=== PATIENT | male | born 1950 | race African-American/Black ===

== ENCOUNTER 2020-08-19 17:51 | Inpatient (IN) | payer MEDICARE, OTHER ==
[~2020-08-19] VITALS: Ht 182.9 cm; Wt 84.4 kg
[2020-08-19] MEDS ORDERED: Adenosine 6mg/2ml Inj ONE ×2 (17:53→18:07)
--- NOTE | 2020-08-19 17:58 | NUR ---
came to er complaints of palpitation from home . patient had adenosin 6 mg iv in the field on arrival patient is in svt ekg done
--- NOTE | 2020-08-19 18:00 | NUR ---
adenosin 6mg iv given 181 adenosin 5 mg iv given converted to sinus rhythem 182 svt again given 12 mg adenosin iv push
--- NOTE | 2020-08-19 18:05 | Emergency Room Report ---
History of Present Illness General Source: Patient Present Illness [facility] Patient is a 70-year-old male presents for increased palpitations onset approximate 4 hours prior to arrival. Patient had been given adenosine by EMS after vagal maneuver had failed. Patient a prior history of cardiac stents and had previous heart attack approximately 12 years ago . patient denies any chest pain. Patient had been given Cardizem aspirin by EMS as well. Patient denies any stimulant use. He reports having some alcohol yesterday. He denies feeling shaky. Denies any drug use Allergies: Coded Allergies: No Known Allergies (Unverified , 08/19/20) Patient History Past Medical History: see triage record Reviewed Nursing Documentation: PMH: Agreed; PSxH: Agreed Review of Systems All Other Systems: negative except mentioned in HPI Physical Exam Sp02 EP Interpretation: reviewed, normal General Appearance: normal inspection, well appearing, no apparent distress, alert Head: atraumatic ENT: normal ENT inspection, hearing grossly normal, normal voice Neck: normal inspection, full range of motion, supple, no bony tend Respiratory: normal inspection, lungs clear, normal breath sounds, no respiratory distress, no retraction, no wheezing Cardiovascular #1: regular rate, rhythm, no edema Gastrointestinal: normal inspection, normal bowel sounds, non tender, soft, no guarding, no hernia Genitourinary: no CVA tenderness Musculoskeletal: normal inspection, back normal, normal range of motion Neurologic: alert, motor strength/tone normal, transmitter engineer III-XII nml as tested, oriented x3, responsive, speech normal, normal inspection Psychiatric: normal inspection, judgement/insight normal, mood/affect normal Skin: normal color Procedures Critical Care Time Critical Care Time Patient had a critical medical condition which untreated could potentially result in life or limb threatening injury. Total critical care time excluding procedures approximately 45 minutes. Medical Decision Making Diagnostic Impression: Primary Impression: Supraventricular tachycardia ER Course Patient presented for supraventricular tachycardia. Differential diagnosis include was not limited to arrhythmia, pulmonary embolism, electrolyte abnormality, stimulant use among others.Patient was noted to have's multiple episodes of recurrent supraventricular tachycardia. He was given adenosine x2 with recurrence both times. He was subsequent given magnesium IV due to recent alcohol intake and rhythm disturbance. Patient was also given IV Cardizem 20 mg IV total. Patient still had some recurrences of supraventricular tachycardia. Patient's initial troponin was negative. Patient had been given aspirin by paramedics. Patient was given additional dose of magnesium to total 2 g. Patient had multiple episodes of SVT which converted each time 6 mg or 12 mg of adenosine was used. Patient had continued recurrences and was therefore given Cardizem. Patient also had some episodes which resolved spontaneously . Dr. Gu was contacted for inpatient management due to need for inpatient monitoring and treatment. Patient will be admitted to stepdown unit Labs Test 08/19/20 18:00 White Blood Count 5.8 K/UL (4.8-10.8) Red Blood Count 4.39 M/UL (4.70-6.10) Hemoglobin 14.4 G/DL (14.2-18.0) Hematocrit 44.3 % (42.0-52.0) Mean Corpuscular Volume 101 FL (80-99) Mean Corpuscular Hemoglobin 32.8 PG (27.0-31.0) Mean Corpuscular Hemoglobin Concent 32.5 G/DL (32.0-36.0) Red Cell Distribution Width 14.4 % (11.6-14.8) Platelet Count 216 K/UL (150-450) Mean Platelet Volume 7.5 FL (6.5-10.1) Neutrophils (%) (Auto) 58.4 % (45.0-75.0) Lymphocytes (%) (Auto) 34.8 % (20.0-45.0) Monocytes (%) (Auto) 5.6 % (1.0-10.0) Eosinophils (%) (Auto) 0.4 % (0.0-3.0) Basophils (%) (Auto) 0.8 % (0.0-2.0) Prothrombin Time 10.0 SEC (9.30-11.50) Prothromb Time International Ratio 0.9 (0.9-1.1) Activated Partial Thromboplast Time 25 SEC (23-33) D-Dimer 0.25 mg/L FEU (0.00-0.49) Sodium Level 142 MMOL/L (136-145) Potassium Level 3.9 MMOL/L (3.5-5.1) Chloride Level 106 MMOL/L (98-107) Carbon Dioxide Level 31 MMOL/L (21-32) Anion Gap 5 mmol/L (5-15) Blood Urea Nitrogen 22 mg/dL (7-18) Creatinine 1.2 MG/DL (0.55-1.30) Estimat Glomerular Filtration Rate > 60 mL/min (>60) Glucose Level 99 MG/DL (74-106) Calcium Level 9.3 MG/DL (8.5-10.1) Total Bilirubin 0.2 MG/DL (0.2-1.0) Aspartate Amino Transf (AST/SGOT) 25 U/L (15-37) Alanine Aminotransferase (ALT/SGPT) 29 U/L (12-78) Alkaline Phosphatase 44 U/L (46-116) Troponin I 0.023 ng/mL (0.000-0.056) Total Protein 7.1 G/DL (6.4-8.2) Albumin 3.6 G/DL (3.4-5.0) Globulin 3.5 g/dL Albumin/Globulin Ratio 1.0 (1.0-2.7) EKG Diagnostic Results Rate: normal Rhythm: NSR ST Segments: no acute changes Nathan Zaman MD Aug 19, 2020 18:05
[2020-08-19] MEDS ORDERED: Carvedilol 12.5mg tab ORAL ONE (18:15)
[2020-08-19] MEDS ORDERED: Adenosine 6mg/2ml Inj IVP ONE ×3 (18:15→20:45)
[2020-08-19 18:17] VITALS: BP 120/80
[2020-08-19 18:30] LABS: BASOPHILS % (AUTO) 0.8 % (0.0-2.0); EOSINOPHILS % (AUTO) 0.4 % (0.0-3.0); HEMATOCRIT 44.3 % (42.0-52.0); HEMOGLOBIN 14.4 G/DL (14.2-18.0); LYMPHOCYTES % (AUTO) 34.8 % (20.0-45.0); MEAN CORPUSCULAR VOLUME 101 FL (80-99); MONOCYTES % (AUTO) 5.6 % (1.0-10.0); NEUTROPHILS % (AUTO) 58.4 % (45.0-75.0); PLATELET COUNT 216 K/UL (150-450); RED BLOOD COUNT 4.39 M/UL (4.70-6.10); RED CELL DISTRIBUTION WIDTH 14.4 % (11.6-14.8); WHITE BLOOD COUNT 5.8 K/UL (4.8-10.8)
[2020-08-19] MEDS ORDERED: dilTIAZem HCl 25mg/5ml Inj IVP ONE (18:30)
[2020-08-19] MEDS ORDERED: Adenosine 90 mg/30mL vial IVP ONE (18:30)
[2020-08-19 18:32] LABS: ANION GAP 5 mmol/L (5-15); BLOOD UREA NITROGEN 22 mg/dL (7-18); CALCIUM 9.3 MG/DL (8.5-10.1); CARBON DIOXIDE 31 MMOL/L (21-32); CHLORIDE 106 MMOL/L (98-107); CREATININE 1.2 MG/DL (0.55-1.30); POTASSIUM 3.9 MMOL/L (3.5-5.1); SODIUM 142 MMOL/L (136-145)
--- NOTE | 2020-08-19 18:35 | NUR ---
ED Nurse Note:IV cardizem was given , BP went down to 69
[2020-08-19 18:36] LABS: INR 0.9 (0.9-1.1)
[2020-08-19 18:38] LABS: ALANINE AMINOTRANSFERASE 29 U/L (12-78); ALBUMIN 3.6 G/DL (3.4-5.0); ALKALINE PHOSPHATASE 44 U/L (46-116); ASPARTATE AMINO TRANSFERASE 25 U/L (15-37); BILIRUBIN,TOTAL 0.2 MG/DL (0.2-1.0)
[2020-08-19] MEDS ORDERED: Aspirin Baby 81mg ORAL ONE (18:45)
[2020-08-19 18:48] VITALS: BP 116/2
--- NOTE | 2020-08-19 18:59 | Diagnostic Imaging Report ---
EXAM: XR Chest, 1 View CLINICAL HISTORY: SOB TECHNIQUE: Frontal view of the chest. COMPARISON: None. FINDINGS: Lungs: Unremarkable. No consolidation. Pleural space: Unremarkable. No pneumothorax. Heart: Unremarkable. No cardiomegaly. Mediastinum: Unremarkable. Bones/joints: Unremarkable. Vasculature: Mild atherosclerotic tortuosity of aorta. IMPRESSION: No acute cardiopulmonary disease.
--- NOTE | 2020-08-19 19:32 | NUR ---
ED Nurse Note: Recieved pt awake, A7Ox4, and verbal. Pt goes in and out of SVT,EDMD ordered another magnesium. pt HR 69 right now. pt is waiting for bed . We will keep monitoring the pt
[2020-08-19 19:45] VITALS: BP 142/79
--- NOTE | 2020-08-19 20:45 | NUR ---
ED Nurse Note: Pt got another SVT and adenosine 6mg given;HR went down back to normal.
[2020-08-19] MEDS ORDERED: Amiodarone 150mg/3ml Amp IVP ONE (21:00)
--- NOTE | 2020-08-19 21:07 | NUR ---
ED Nurse Note: Pt keep getting svt; EDMD ordered amiodarone drip and order noted and carried on.
[2020-08-19 21:16] VITALS: BP 139/72
--- NOTE | 2020-08-19 22:00 | NUR ---
TRANSFER TO FLOOR: Patient transferred to 246F as ordered, per Casper. Report given to BARBIE Kevin. All Belongings sent with the pt. 2 RN's transferred the pt to floor in stable condition.
--- NOTE | 2020-08-19 22:15 | NUR ---
NURSE NOTES: received from ed via gurney,in no ditress, cardiac monitor technician shows nsr with hr 60's/min bp 147/96, no complaints of chest pain, on o22lnc with o2 sat 100%, iv site good to right ac and left hand, no maintenace iv fluid, has $77 but refused to put it in the safe
[2020-08-19 22:30] VITALS: BP 147/96
--- NOTE | 2020-08-19 22:50 | NUR ---
NURSE NOTES: dr barrera called for orders
[2020-08-19 23:03] VITALS: BP 147/94
--- NOTE | 2020-08-19 23:15 | NUR ---
NURSE NOTES: dr barrera called in and admission orders noted
[2020-08-20] VITALS (18 sets, daily range): BP systolic 117–159; BP diastolic 75–102
--- NOTE | 2020-08-20 | NUR ---
NURSE NOTES: remains on nsr, no sob, no chest pain
[2020-08-20] MEDS ORDERED: ASPIRIN EC81 MG ORAL (00:24)
[2020-08-20] MEDS ORDERED: COREG12.5 MG ORAL (00:24)
[2020-08-20] MEDS ORDERED: SIMVASTATIN40 MG ORAL (00:24)
--- NOTE | 2020-08-20 02:33 | Cardiology Progress Note ---
Assessment/Plan Assessment/Plan The patient is seen and examined in the ED at 19:30 on Aug 19, full consult dictated. Objective Last 24 Hour Vital Signs Date Time Temp Pulse Resp B/P (MAP) Pulse Ox O2 Delivery O2 Flow Rate FiO2 08/20/20 01:00 58 18 125/80 (95) 98 08/20/20 00:33 Nasal Cannula 2.0 08/20/20 00:25 Nasal Cannula 2.0 08/20/20 00:00 98.0 65 18 132/75 (94) 98 08/19/20 23:03 61 20 147/94 (111) 100 08/19/20 22:30 98.4 60 20 147/96 (113) 100 08/19/20 22:00 97.8 63 19 141/69 99 Nasal Cannula 2.0 08/19/20 21:16 97.5 72 25 139/72 98 Nasal Cannula 2.0 08/19/20 20:41 178 08/19/20 19:45 97.9 69 21 142/79 98 Nasal Cannula 2.0 08/19/20 18:48 98.1 69 17 116/2 98 Room Air 08/19/20 18:30 190 08/19/20 18:29 190 120/80 08/19/20 18:17 98.1 190 18 120/80 98 Room Air 08/19/20 18:14 180 08/19/20 18:14 180 08/19/20 17:58 98.1 180 18 120/80 (93) 98 Room Air Intake and Output 08/19/20 08/20/20 19:00 07:00 Intake Total 240 ml Output Total 200 ml Balance 40 ml Intake Oral 240 ml Output Urine Total 200 ml # Voids 1 Laboratory Tests Test 08/19/20 18:00 White Blood Count 5.8 K/UL (4.8-10.8) Red Blood Count 4.39 M/UL (4.70-6.10) L Hemoglobin 14.4 G/DL (14.2-18.0) Hematocrit 44.3 % (42.0-52.0) Mean Corpuscular Volume 101 FL (80-99) H Mean Corpuscular Hemoglobin 32.8 PG (27.0-31.0) H Mean Corpuscular Hemoglobin Concent 32.5 G/DL (32.0-36.0) Red Cell Distribution Width 14.4 % (11.6-14.8) Platelet Count 216 K/UL (150-450) Mean Platelet Volume 7.5 FL (6.5-10.1) Neutrophils (%) (Auto) 58.4 % (45.0-75.0) Lymphocytes (%) (Auto) 34.8 % (20.0-45.0) Monocytes (%) (Auto) 5.6 % (1.0-10.0) Eosinophils (%) (Auto) 0.4 % (0.0-3.0) Basophils (%) (Auto) 0.8 % (0.0-2.0) Prothrombin Time 10.0 SEC (9.30-11.50) Prothromb Time International Ratio 0.9 (0.9-1.1) Activated Partial Thromboplast Time 25 SEC (23-33) D-Dimer 0.25 mg/L FEU (0.00-0.49) Sodium Level 142 MMOL/L (136-145) Potassium Level 3.9 MMOL/L (3.5-5.1) Chloride Level 106 MMOL/L (98-107) Carbon Dioxide Level 31 MMOL/L (21-32) Anion Gap 5 mmol/L (5-15) Blood Urea Nitrogen 22 mg/dL (7-18) H Creatinine 1.2 MG/DL (0.55-1.30) Estimat Glomerular Filtration Rate > 60 mL/min (>60) Glucose Level 99 MG/DL (74-106) Calcium Level 9.3 MG/DL (8.5-10.1) Total Bilirubin 0.2 MG/DL (0.2-1.0) Aspartate Amino Transf (AST/SGOT) 25 U/L (15-37) Alanine Aminotransferase (ALT/SGPT) 29 U/L (12-78) Alkaline Phosphatase 44 U/L (46-116) L Troponin I 0.023 ng/mL (0.000-0.056) Total Protein 7.1 G/DL (6.4-8.2) Albumin 3.6 G/DL (3.4-5.0) Globulin 3.5 g/dL Albumin/Globulin Ratio 1.0 (1.0-2.7) Microbiology Date/Time Source Procedure Growth Status 08/19/20 19:00 Nasopharynx SARS-CoV-2 RdRp Gene Assay - Final Complete Dayton Coleman MD Aug 20, 2020 02:33
--- NOTE | 2020-08-20 04:00 | NUR ---
NURSE NOTES: no complaints, bus driver/monitor shows sb/sr
--- NOTE | 2020-08-20 04:45 | Consultation ---
DATE OF CONSULTATION: 08/19/2020 CARDIOLOGY CONSULTATION CONSULTING PHYSICIAN: Dayton Coleman M.D. REFERRING PHYSICIAN: Shasha Gu M.D. REASON FOR CONSULTATION: Management of supraventricular tachycardia. HISTORY OF PRESENT ILLNESS: The patient is a very unfortunate 70-year-old gentleman who presents to the hospital with complaints of palpitations and heart racing that occurred just above 4 hours prior to his arrival to the emergency department. The patient's initial 12-lead electrocardiogram done by EMS was supraventricular tachycardia, rate of 180. The patient was given adenosine after vagal maneuver was failed. At the time of arrival to the hospital, the patient's 12-lead electrocardiogram showed sinus tachycardia. Cardiovascular history is also significant for history of coronary artery disease status post PCI that occurred about 12 years ago. At the time of my arrival to the hospital, the patient did not have any chest pain or shortness of breath. He states that he drank alcohol the day before. PAST MEDICAL HISTORY: 1. Coronary artery disease status post PCI. 2. History of supraventricular tachycardia, seen by his reed press feeder, who had pacing on medication. PAST SURGICAL HISTORY: Angioplasty and stent placement in the coronary arteries. ALLERGIES: No known drug allergies. REVIEW OF SYSTEMS: HEENT: Denies any headache, diplopia, or blurred vision. CONSTITUTIONAL: Denies any fever, chills, nausea, or weight loss. CARDIOVASCULAR: Denies any chest pain, shortness breath, PND, orthopnea, leg swelling. Heart racing was temporary and currently does not have any palpitations. PULMONARY: Denies any cough, hemoptysis, or wheezing. GASTROINTESTINAL: Denies any nausea, vomiting, diarrhea, constipation, abdominal pain, or GI bleed. GENITOURINARY: Denies any hematuria, dysuria, or incontinence. NEUROLOGY: Denies any motor dysfunction, sensory deficit, or altered speech. MEDICATIONS: List of medications at home includes aspirin 81 mg p.o. daily, carvedilol 12.5 mg q.12 hours, and simvastatin 40 mg p.o. at bedtime. FAMILY HISTORY: No premature coronary artery disease in the first-degree relatives. HABITS: Positive for drinking alcohol. Denies any tobacco use or illicit drug use. PHYSICAL EXAMINATION: VITAL SIGNS: At the time of arrival to the hospital, the patient's blood pressure was 120/80 mmHg and heart rate was 180. After adenosine, the patient's heart rate dropped to 69, temperature 98.1 degrees Fahrenheit, respirations of 18, O2 saturation of 98% on room air. GENERAL: The patient is a very unfortunate 70-year-old gentleman in no apparent respiratory distress. HEENT: Atraumatic and normocephalic. Anicteric. Pupils are equal, round, and reactive to light and accommodation. Extraocular muscles intact. NECK: JVP less than 5 cm. No carotid bruit. Carotid upstrokes 2+ bilaterally. CARDIOVASCULAR: Normal S1 and S2. Regular rate and rhythm. No murmurs, gallops, or rubs. PMI is at fourth intercostal space at the left midclavicular line. LUNGS: Clear to auscultation bilaterally. ABDOMEN: Soft, nontender, and nondistended. No hepatosplenomegaly. Positive bowel sounds. EXTREMITIES: No evidence of edema, clubbing, or cyanosis. ER COURSE: In the emergency department, the patient had recurrence of supraventricular tachycardia, for which he was given adenosine x2. Then, he was given magnesium intravenous and Cardizem 20 mg intravenous push x1 dose, total adenosine given to the patient was 6 times. LABORATORY FINDINGS: WBC 5.8, hemoglobin 14.4, hematocrit of 44.3, and platelet count is 216. Sodium is 142, potassium is 3.9, chloride 106, bicarbonate 31, BUN 22, creatinine 1.2, glucose is 99, and calcium is 9.3. D-dimer is 0.25. Troponin I 0.023. Chest x-ray showed no acute cardiopulmonary disease. ASSESSMENT AND PLAN: The patient is a very unfortunate 70-year-old gentleman seen in Cardiology consultation. 1. 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 We would like to continue Coreg. The patient requires to have a decision for electrophysiology study and possible ablation of this rhythm. Currently at this time, the patient will be given beta-blockers. This is an outpatient management and [facility] does not have the amenities for EP study. 2. History of coronary artery disease, status post PCI, will continue aspirin and statins. The patient's 12-lead electrocardiogram does not show any ischemic changes. We will continue to rule out myocardial infarction with troponin I levels. Of note, initial troponin I level was 0.023. 3. History of hypertension. I would like to thank Dr. Gu for the courtesy of this consultation. Dayton Coleman M.D. DR: KIN JOB#: [id number] CC:
[2020-08-20 06:36] LABS: BASOPHILS % (AUTO) 0.8 % (0.0-2.0); EOSINOPHILS % (AUTO) 0.8 % (0.0-3.0); HEMATOCRIT 41.7 % (42.0-52.0); HEMOGLOBIN 13.5 G/DL (14.2-18.0); LYMPHOCYTES % (AUTO) 34.4 % (20.0-45.0); MEAN CORPUSCULAR VOLUME 101 FL (80-99); MONOCYTES % (AUTO) 6.8 % (1.0-10.0); NEUTROPHILS % (AUTO) 57.2 % (45.0-75.0); PLATELET COUNT 200 K/UL (150-450); RED BLOOD COUNT 4.12 M/UL (4.70-6.10); RED CELL DISTRIBUTION WIDTH 13.7 % (11.6-14.8); WHITE BLOOD COUNT 5.3 K/UL (4.8-10.8)
--- NOTE | 2020-08-20 07:06 | NUR ---
NURSE HAND-OFF REPORT: Latest Vital Signs: Temperature 97.4 , Pulse 56 , B/P 141 /102 , Respiratory Rate 20 , O2 SAT 100 , Nasal Cannula, O2 Flow Rate 2.0 . Vital Sign Comment: EKG Rhythm: Sinus Bradycardia Rhythm change?: N MD Notified?: - MD Response: Latest Ledesma Fall Score: 35 Fall Risk: Medium Risk Safety Measures: Call light Within Reach, Bed Alarm Zone 1, Side Rails Side Rails x3, Bed position Low and Locked. Fall Precautions: fall teaching, sign at the door Report given to luis felipe keller.
[2020-08-20 07:46] LABS: ALANINE AMINOTRANSFERASE 28 U/L (12-78); ALBUMIN 3.3 G/DL (3.4-5.0); ALKALINE PHOSPHATASE 37 U/L (46-116); ANION GAP 7 mmol/L (5-15); ASPARTATE AMINO TRANSFERASE 24 U/L (15-37); BILIRUBIN,TOTAL 0.2 MG/DL (0.2-1.0); BLOOD UREA NITROGEN 19 mg/dL (7-18); CALCIUM 9.1 MG/DL (8.5-10.1); CARBON DIOXIDE 27 MMOL/L (21-32); CHLORIDE 109 MMOL/L (98-107); CHOLESTEROL 199 MG/DL (< 200); CREATININE 0.9 MG/DL (0.55-1.30); HDL CHOLESTEROL 67 MG/DL (40-60); SODIUM 143 MMOL/L (136-145); TRIGLYCERIDES 180 MG/DL (30-150)
--- NOTE | 2020-08-20 08:00 | NUR ---
NURSE NOTES: Received patient awake and alert- denies palpitation ,denies pain. monitoring tech shows Sinus Bradycardia rate 54-56/min. SL @ Right AC and LH patent - no s/s infiltration noted. Patient on RA - sao2 98-100% denies SOB
[2020-08-20] MEDS: Aspirin Baby 81mg NG SCH (08:31)
[2020-08-20] MEDS: Carvedilol 12.5mg tab NG SCH ×2 (08:31→20:51)
[2020-08-20] MEDS: Enoxaparin 40mg Inj SUBQ SCH (08:34)
--- NOTE | 2020-08-20 09:00 | NUR ---
NURSE NOTES: Coreg12.5 mg not given due to low HR 54/min
--- NOTE | 2020-08-20 10:45 | Cardiology Report ---
APPROVED REPORT EKG Measurement Heart [id number] <Conclusion> Sinus tachycardia Right atrial enlargement Junctional ST depression, probably normal Borderline ECG
--- NOTE | 2020-08-20 11:41 | Consultation ---
Consult Note Consult Note HISTORY OF PRESENT ILLNESS: The patient is a 70-year-old gentleman who presents to the hospital with complaints of palpitations and heart racing that occurred just above 4 hours prior to his arrival to the emergency department. The patient's initial 12-lead electrocardiogram done by EMS was supraventricular tachycardia, rate of 180. The patient was given adenosine after vagal maneuver was failed. At the time of arrival to the hospital, the patient's 12-lead electrocardiogram showed sinus tachycardia. Cardiovascular history is also significant for history of coronary artery disease status post PCI that occurred about 12 years ago. At the time of my arrival to the hospital, the patient did not have any chest pain or shortness of breath. He states that he drank alcohol the day before. PAST MEDICAL HISTORY: 1. Coronary artery disease status post PCI. 2. History of supraventricular tachycardia, seen by his collet gluer, who had pacing on medication. PAST SURGICAL HISTORY: Angioplasty and stent placement in the coronary arteries. ALLERGIES: No known drug allergies. REVIEW OF SYSTEMS: HEENT: Denies any headache, diplopia, or blurred vision. CONSTITUTIONAL: Denies any fever, chills, nausea, or weight loss. CARDIOVASCULAR: Denies any chest pain, shortness breath, PND, orthopnea, leg swelling. Heart racing was temporary and currently does not have any palpitations. PULMONARY: Denies any cough, hemoptysis, or wheezing. GASTROINTESTINAL: Denies any nausea, vomiting, diarrhea, constipation, abdominal pain, or GI bleed. GENITOURINARY: Denies any hematuria, dysuria, or incontinence. NEUROLOGY: Denies any motor dysfunction, sensory deficit, or altered speech. MEDICATIONS: List of medications at home includes aspirin 81 mg p.o. daily, carvedilol 12.5 mg q.12 hours, and simvastatin 40 mg p.o. at bedtime. FAMILY HISTORY: No premature coronary artery disease in the first-degree relatives. HABITS: Positive for drinking alcohol. Denies any tobacco use or illicit drug use. PHYSICAL EXAMINATION: VITAL SIGNS: At the time of arrival to the hospital, the patient's blood pressure was 120/80 mmHg and heart rate was 180. After adenosine, the patient's heart rate dropped to 69, temperature 98.1 degrees Fahrenheit, respirations of 18, O2 saturation of 98% on room air. GENERAL: No respiratory distress. HEENT: Atraumatic and normocephalic. Anicteric. Pupils are equal, round, and reactive to light and accommodation. Extraocular muscles intact. NECK: JVP less than 5 cm. No carotid bruit. Carotid upstrokes 2+ bilaterally. CARDIOVASCULAR: Normal S1 and S2. Regular rate and rhythm. No murmurs, gallops, or rubs. PMI is at fourth intercostal space at the left midclavicular line. LUNGS: Clear to auscultation bilaterally. ABDOMEN: Soft, nontender, and nondistended. No hepatosplenomegaly. Positive bowel sounds. EXTREMITIES: No evidence of edema, clubbing, or cyanosis. ER COURSE: In the emergency department, the patient had recurrence of supraventricular tachycardia, for which he was given adenosine x2. Then, he was given magnesium intravenous and Cardizem 20 mg intravenous push x1 dose, total adenosine given to the patient was 6 times. LABORATORY FINDINGS: WBC 5.8, hemoglobin 14.4, hematocrit of 44.3, and platelet count is 216. Sodium is 142, potassium is 3.9, chloride 106, bicarbonate 31, BUN 22, creatinine 1.2, glucose is 99, and calcium is 9.3. D-dimer is 0.25. Troponin I 0.023. Chest x-ray showed no acute cardiopulmonary disease. ASSESSMENT AND PLAN: 1. 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 - Continue Coreg. - EP evaluation 2. History of coronary artery disease, status post PCI, 3. History of hypertension. Stable to transfer out of ICU Aston Mckeon M.D. Aston Mckeon MD Aug 20, 2020 11:41
--- NOTE | 2020-08-20 12:00 | NUR ---
NURSE NOTES: V/S stable - denies palpitation - surveillance monitor shows in and out of Sinus Bradycardia and ST - no ectopy noted. Patient made aware he is for transfer to SDU /Tele unit as soon as room is available
--- NOTE | 2020-08-20 12:15 | General Progress Note ---
Subjective Allergies: Coded Allergies: No Known Allergies (Unverified , 08/19/20) Objective Last 24 Hour Vital Signs Date Time Temp Pulse Resp B/P (MAP) Pulse Ox O2 Delivery O2 Flow Rate FiO2 08/20/20 12:00 Room Air 08/20/20 12:00 98.0 58 19 159/99 (119) 100 08/20/20 12:00 55 08/20/20 11:00 66 15 141/83 (102) 99 08/20/20 10:00 66 19 154/84 (107) 99 08/20/20 09:00 59 18 136/87 (103) 99 08/20/20 08:31 54 153/88 08/20/20 08:00 97.6 56 15 150/102 (118) 100 08/20/20 08:00 Room Air 08/20/20 08:00 54 08/20/20 07:00 56 20 141/102 (115) 100 08/20/20 05:00 55 20 149/93 (111) 100 08/20/20 04:00 Nasal Cannula 2.0 08/20/20 04:00 97.4 70 20 135/93 (107) 100 08/20/20 03:41 60 08/20/20 03:00 62 20 117/77 (90) 100 08/20/20 02:00 60 20 125/83 (97) 100 08/20/20 01:00 58 18 125/80 (95) 98 08/20/20 00:33 Nasal Cannula 2.0 08/20/20 00:25 Nasal Cannula 2.0 08/20/20 00:00 61 08/20/20 00:00 98.0 65 18 132/75 (94) 98 08/19/20 23:03 61 20 147/94 (111) 100 08/19/20 22:30 98.4 60 20 147/96 (113) 100 08/19/20 22:30 60 08/19/20 22:00 97.8 63 19 141/69 99 Nasal Cannula 2.0 08/19/20 21:16 97.5 72 25 139/72 98 Nasal Cannula 2.0 08/19/20 20:41 178 08/19/20 19:45 97.9 69 21 142/79 98 Nasal Cannula 2.0 08/19/20 18:48 98.1 69 17 116/2 98 Room Air 1/10/21 18:30 190 08/19/20 18:29 190 120/80 08/19/20 18:17 98.1 190 18 120/80 98 Room Air 08/19/20 18:14 180 08/19/20 18:14 180 08/19/20 17:58 98.1 180 18 120/80 (93) 98 Room Air Intake and Output 08/19/20 08/20/20 19:00 07:00 Intake Total 720 ml Output Total 450 ml Balance 270 ml Intake Oral 720 ml Output Urine Total 450 ml # Voids 1 Laboratory Tests 08/19/20 18:00: White Blood Count 5.8, Red Blood Count 4.39L, Hemoglobin 14.4, Hematocrit 44.3, Mean Corpuscular Volume 101H, Mean Corpuscular Hemoglobin 32.8H, Mean Corpuscular Hemoglobin Concent 32.5, Red Cell Distribution Width 14.4, Platelet Count 216, Mean Platelet Volume 7.5, Neutrophils (%) (Auto) 58.4, Lymphocytes (%) (Auto) 34.8, Monocytes (%) (Auto) 5.6, Eosinophils (%) (Auto) 0.4, Basophils (%) (Auto) 0.8, Prothrombin Time 10.0, Prothromb Time International Ratio 0.9, Activated Partial Thromboplast Time 25, D-Dimer 0.25, Sodium Level 142, Potassium Level 3.9, Chloride Level 106, Carbon Dioxide Level 31, Anion Gap 5, Blood Urea Nitrogen 22H, Creatinine 1.2, Estimat Glomerular Filtration Rate > 60, Glucose Level 99, Calcium Level 9.3, Total Bilirubin 0.2, Aspartate Amino Transf (AST/SGOT) 25, Alanine Aminotransferase (ALT/SGPT) 29, Alkaline Phosphatase 44L, Troponin I 0.023, Total Protein 7.1, Albumin 3.6, Globulin 3.5, Albumin/Globulin Ratio 1.0 08/20/20 06:05: White Blood Count 5.3, Red Blood Count 4.12L, Hemoglobin 13.5L, Hematocrit 41.7L , Mean Corpuscular Volume 101H, Mean Corpuscular Hemoglobin 32.8H, Mean Corpuscular Hemoglobin Concent 32.3, Red Cell Distribution Width 13.7, Platelet Count 200, Mean Platelet Volume 7.5, Neutrophils (%) (Auto) 57.2, Lymphocytes (%) (Auto) 34.4, Monocytes (%) (Auto) 6.8, Eosinophils (%) (Auto) 0.8, Basophils (%) (Auto) 0.8, Sodium Level 143, Potassium Level 4.0, Chloride Level 109H, Carbon Dioxide Level 27, Anion Gap 7, Blood Urea Nitrogen 19H, Creatinine 0.9, Estimat Glomerular Filtration Rate > 60, Glucose Level 111H, Calcium Level 9.1, Total Bilirubin 0.2, Aspartate Amino Transf (AST/SGOT) 24, Alanine Aminotransferase (ALT/SGPT) 28, Alkaline Phosphatase 37L, Troponin I 0.081H, Total Protein 6.6, Albumin 3.3L, Globulin 3.3, Albumin/Globulin Ratio 1.0, Hemoglobin A1c 6.7H, Triglycerides Level 180H, Cholesterol Level 199, LDL Cholesterol 105H, HDL Cholesterol 67H, Cholesterol/HDL Ratio 3.0L Height (Feet): 6 Weight (Pounds): 186 Assessment/Plan Assessment/Plan: Full dictatino in progress 1- acute symptomatic SVT 2- cad , h.o of 3- etoh abuse plan; pendig echo monitor in icu december fu outside the ICU Shasha Gu MD Aug 20, 2020 12:15
--- NOTE | 2020-08-20 13:03 | NUR ---
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
--- NOTE | 2020-08-20 13:35 | NUR ---
HEALTH EDUCATION COORDINATOR NOTE SW met w/ pt and completed the psychosocial assessment. Pt presents as A&O4x. Pt wears glasses. Pt currently resides w/ his girlfriend. Pt reports the address on facesheet is outdated and pt declined to provide the new address. Pt is single, and has no children. PT denies having fall within past 6 months. Pt is ambulatory w/o DME. However, pt reports he needs assistance w/ some ADLs and IADLs including cooking and bathing. Pt does not use a shower chair. SW encouraged pt to use one. PT receives [facility] service, unknown hours/mo, and his girlfriend is the provider. PT reports he receives sufficient support from his girlfriend. Pt declined to provide an emergency contact. Pt denies having AD/POA. Pt remains full code. Pt does not have any social worker aide concern/needs at this time. SW to F/U as needed.
--- NOTE | 2020-08-20 14:09 | NUR ---
NURSE NOTE Patient resting comfortably- had run of SVT rate 175 for 9 second with couplet PVC- BP 143/90
--- NOTE | 2020-08-20 14:30 | History and Physical Report ---
DATE OF ADMISSION: 08/19/2020 SOURCE OF INFORMATION: Patient and EMR. HISTORY OF PRESENT ILLNESS: The patient is a 70-year-old male with history of history of cardiac arrhythmia who presented with worsening of the chest pain and shortness of breath. Initial evaluation in the emergency room, the patient was found to have uncontrolled cardiac rate of 180, presented with episodes of ventricular tachycardia and SVT. The patient denies any nausea, vomiting, constipation. The patient reported that he takes and drinks alcohol and otherwise denies using any drugs. Denies any shortness of breath, chest pain, fever, or chills. FAMILY HISTORY: Reviewed and noncontributory. ALLERGIES: NKDA. SOCIAL HISTORY: Positive for alcohol abuse. Denies history of illicit drug abuse or tobacco use. MEDICATIONS: Current hospital medications including but not limited to aspirin, atorvastatin, Coreg, Lovenox. PAST MEDICAL AND SURGICAL HISTORY: Coronary artery disease with stent placement and cardiac arrhythmias. PHYSICAL EXAMINATION: VITAL SIGNS: Blood pressure of 120/80, temperature 98.2, pulse oximetry 98% on room air, pulse rate 180, respiratory rate 18. HEAD AND NECK: Atraumatic and normocephalic. CHEST: Clear to auscultation. HEART: S1 and S2. Regular rate and rhythm. ABDOMEN: Soft. No organomegaly. MUSCULOSKELETAL: No gross focal motor deficit. NEUROLOGIC: The patient is awake, alert, oriented x3. LABORATORY DATA: Dated 08/19/2020 shows WBC 5.8, hemoglobin of 14.4. Troponin of 0.02. Sodium 142, potassium 3.9, BUN 22, creatinine 1.2. LDL of 105. ASSESSMENT AND PLAN: 1. Acute symptomatic supraventricular tachyarrhythmias. 2. Coronary artery disease. 3. Hypertension. 4. Hyperlipidemia. 5. ETOH. 6. GI and DVT prophylaxis. PLAN OF CARE: Continue with current management. Cardiology and pulmonary notified. The patient received Cardizem drip and amiodarone drip. We will optimize the pulse rate. Pending results for the echocardiogram. I agree with the admission to intensive care unit. Shasha Gu M.D. DR: Humble JOB#: [id number] CC:
--- NOTE | 2020-08-20 16:00 | NUR ---
NURSE NOTES: Received pt from BARBIE Campos, pt is awake and alert, pt is in RA no SOB or acute respiratory distress noted. pt has intact iv access LH 20G and RAC 22G SL. Pt is on continues heart monitoring, no complain of pain at this moment. all needs attended, bed is locked and is in the lowest position, call light within easy reach. will continue to monitor.
--- NOTE | 2020-08-20 16:04 | NUR ---
NURSE NOTES: Patient transferred to SDU Room #234 via bed by Keiko RN - patient awake and alert
--- NOTE | 2020-08-20 16:30 | NUR ---
NURSE NOTES: Report given to Mic VALENTIN . Endorsed
--- NOTE | 2020-08-20 19:18 | NUR ---
NURSE HAND-OFF REPORT: Important Events on Shift: Patient Status: Diet: Pending Orders: Pending Results/Labs: Pending MD notification: Latest Vital Signs: Temperature 97.3 , Pulse 68 , B/P 142 /88 , Respiratory Rate 19 , O2 SAT 97 , Nasal Cannula, O2 Flow Rate 2.0 . Vital Sign Comment: EKG Rhythm: Sinus Rhythm Rhythm change?: N MD Notified?: - MD Response: Latest Ledesma Fall Score: 35 Fall Risk: Medium Risk Safety Measures: Call light Within Reach, Bed Alarm Zone 1, Side Rails Side Rails x3, Bed position Low and Locked. Fall Precautions: Yellow Socks Report given to . Pt is awake and stable, no stress noted, endorsed plan of care, endorsed to monitor HR, HR 67 now.
--- NOTE | 2020-08-20 19:30 | NUR ---
NURSE NOTES: Received report form BARBIE Haile. Patient is awake on bed, alert and oriented x 4. secured entrance monitor is in place, shows sinus rhythm with no chest pain reported. On room air, sating 95% with no desaturation at this time. On low sodium diet, instructed and amenable. IV site is on right AC g-22 saline locked and left hand g-20 saline locked that is patent and intact. Safety measures are in place, bed in lowest and locked position, side rails up x 2, call light button and bedside table within reach, instructed to call for any assistance needed. Will continue plan of care.
--- NOTE | 2020-08-20 20:57 | NUR ---
HAND-OFF: Report given to BARBIE Salcedo. Patient is awake on bed in stable condition, no complaints made at this time. Blood pressure is slightly elevated and denies any headache nor dizziness. Coreg was given. Plan of care endorsed.
[2020-08-20] MEDS ORDERED: Atorvastatin 20mg tab ORAL SCH (21:00)
--- NOTE | 2020-08-20 21:00 | NUR ---
NURSE NOTES: RECEIVED REPORT FROM BARBIE HAYS.PATIENT AWAKE ALERT ORIENTED X 4,NO COMPLAIN OF PAIN.SINUS MARTA 58/MIN ON THE MONITOR BP 156/100 ,COREG WAS GIVEN AT 5,BP RECHECKED 154/80 HR 59/MIN.WILL CONTINUE TO MONITOR .
[2020-08-21] VITALS: BP 166/97
[2020-08-21 04:00] VITALS: BP 181/107
--- NOTE | 2020-08-21 05:19 | NUR ---
NURSE NOTES: bp 181/107 hr 55-63 sinus,no chest pain.paged and notified Dr Coleman .Awaiting to call back.
--- NOTE | 2020-08-21 07:30 | NUR ---
NURSE NOTES: Received report from BARBIE Salcedo. Patient in bed resting, no active s/s cardiac, respiratory distress noticed at this time. Patient AOX4, SR with HR 63. Endorsed elevated SBP, now BP145/101, patient denies pain at this time. Patient on room air O2 sat 95%. IV on right AC 22G, left hand 20G, asymptomatic, patent, intact. Patient able to ambulate with steady gait, educated to call staffs before moving out of bed. Bed in lowest position, side rails upx3, call light within reach, bed alarm on, Will continue to monitor.
[2020-08-21 08:00] VITALS: BP 145/101
[2020-08-21] MEDS: Aspirin Baby 81mg NG SCH (08:34)
[2020-08-21] MEDS: Enoxaparin 40mg Inj SUBQ SCH (08:34)
[2020-08-21] MEDS: Carvedilol 12.5mg tab NG SCH (09:00)
--- NOTE | 2020-08-21 10:38 | General Progress Note ---
Subjective Allergies: Coded Allergies: No Known Allergies (Unverified , 08/19/20) Objective Last 24 Hour Vital Signs Date Time Temp Pulse Resp B/P (MAP) Pulse Ox O2 Delivery O2 Flow Rate FiO2 08/21/20 09:00 59 145/101 08/21/20 08:00 Room Air 08/21/20 08:00 96.8 60 18 145/101 (116) 97 08/21/20 08:00 54 08/21/20 06:15 181/107 08/21/20 04:00 Room Air 08/21/20 04:00 97.5 63 18 181/107 (131) 98 08/21/20 03:45 66 08/21/20 00:00 Room Air 08/21/20 00:00 56 08/21/20 00:00 97.7 58 20 166/97 (120) 97 08/20/20 21:00 59 154/80 (104) 08/20/20 20:51 58 156/100 08/20/20 20:00 96.5 58 22 156/100 (118) 97 08/20/20 20:00 Room Air 08/20/20 20:00 63 08/20/20 16:30 68 08/20/20 16:00 97.3 60 19 142/88 (106) 97 08/20/20 16:00 Room Air 08/20/20 15:00 61 17 155/83 (107) 99 08/20/20 14:00 66 17 143/90 (107) 99 08/20/20 13:00 60 17 149/98 (115) 99 08/20/20 12:00 Room Air 08/20/20 12:00 98.0 58 19 159/99 (119) 100 08/20/20 12:00 55 08/20/20 11:00 66 15 141/83 (102) 99 Intake and Output 08/20/20 08/21/20 18:59 06:59 Intake Total 600 ml 320 ml Output Total 750 ml Balance -150 ml 320 ml Intake Oral 600 ml 320 ml Output Urine Total 750 ml # Voids 1 1 # Bowel Movements 1 Height (Feet): 6 Weight (Pounds): 186 Assessment/Plan Assessment/Plan: S: I am feeling ok O: seems comfortable. no chest painor sob PHYSICAL EXAMINATION:HEAD AND NECK: Atraumatic and normocephalic. CHEST: Clear to auscultation.HEART: S1 and S2. Regular rate and rhythm. ABDOMEN: Soft. No organomegaly.MUSCULOSKELETAL: No gross focal motor deficit. NEUROLOGIC: The patient is awake, alert, oriented x3. Meds, labs: reviewed and reconciled ASSESSMENT AND PLAN: 1. Acute symptomatic supraventricular tachyarrhythmias. 2. Coronary artery disease. 3. Hypertension. 4. Hyperlipidemia. 5. ETOH. 6. GI and DVT prophylaxis. PLAN OF CARE: NOtes from cardiology reviwed. Monitor patient symptomatology, if no recurrent symptomatic episode, may followup as outpatient with primary clinical resource nurse Shasha Gu MD Aug 21, 2020 10:38
[2020-08-21 12:00] VITALS: BP 143/98
--- NOTE | 2020-08-21 12:02 | NUR ---
Marine ScientistBaby Stroller Rental Clerk SI: Supraventicular Tachycardia T 96.8, HR 60, RR 18, BP 145/101, O2 sat 97% on Room air IS: Lipitor PO HS Lovenox SQ QD Coreg NG q 12 h ASA PO NG QD Step Down status DCP: home pending hospitalization
--- NOTE | 2020-08-21 12:41 | NUR ---
NURSE NOTES: Paged Dr. Gu for discharge order. Awaiting for callback.
--- NOTE | 2020-08-21 12:48 | Pulmonology Progress Note ---
Subjective Interval Events: Looking and feeling better Constitutional: Reports: no symptoms HEENT: Repors: no symptoms Respiratory: Reports: no symptoms Cardiovascular: Reports: no symptoms Allergies: Coded Allergies: No Known Allergies (Unverified , 08/19/20) Objective Last 24 Hour Vital Signs Date Time Temp Pulse Resp B/P (MAP) Pulse Ox O2 Delivery O2 Flow Rate FiO2 08/21/20 09:00 59 145/101 08/21/20 08:00 Room Air 08/21/20 08:00 96.8 60 18 145/101 (116) 97 08/21/20 08:00 54 08/21/20 06:15 181/107 08/21/20 04:00 Room Air 08/21/20 04:00 97.5 63 18 181/107 (131) 98 08/21/20 03:45 66 08/21/20 00:00 Room Air 08/21/20 00:00 56 08/21/20 00:00 97.7 58 20 166/97 (120) 97 08/20/20 21:00 59 154/80 (104) 08/20/20 20:51 58 156/100 08/20/20 20:00 96.5 58 22 156/100 (118) 97 08/20/20 20:00 Room Air 08/20/20 20:00 63 08/20/20 16:30 68 08/20/20 16:00 97.3 60 19 142/88 (106) 97 08/20/20 16:00 Room Air 08/20/20 15:00 61 17 155/83 (107) 99 08/20/20 14:00 66 17 143/90 (107) 99 08/20/20 13:00 60 17 149/98 (115) 99 Intake and Output 08/20/20 08/21/20 19:00 07:00 Intake Total 600 ml 320 ml Output Total 750 ml Balance -150 ml 320 ml Intake Oral 600 ml 320 ml Output Urine Total 750 ml # Voids 1 1 # Bowel Movements 1 General Appearance: no acute distress HEENT: normocephalic Respiratory: chest wall non-tender, no respiratory distress Cardiovascular: normal peripheral pulses Abdomen: normal bowel sounds Microbiology Date/Time Source Procedure Growth Status 08/19/20 19:00 Nasopharynx SARS-CoV-2 RdRp Gene Assay - Final Complete Current Medications Medications (Trade) Dose Ordered Sig/Danilo Route PRN Reason Start Time Stop Time Status Last Admin Dose Admin Aspirin (ASA) 81 mg DAILY NG 08/20/20 09:00 10/04/20 08:59 08/21/20 08:34 Atorvastatin Calcium (Lipitor) 20 mg BEDTIME ORAL 08/20/20 21:00 11/18/20 20:59 08/20/20 20:49 Carvedilol (Coreg) 12.5 mg EVERY 12 HOURS NG 08/20/20 09:00 09/19/20 08:59 08/20/20 20:51 Clonidine HCl (Catapres Tab) 0.1 mg Q8H PRN ORAL For High Blood Pressure 08/21/20 05:30 11/19/20 05:29 08/21/20 06:15 Enoxaparin Sodium (Lovenox) 40 mg DAILY SUBQ 08/20/20 09:00 11/18/20 08:59 08/21/20 08:34 Assessment/Plan Assessment/Plan ASSESSMENT AND PLAN: 1. 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 - Continue Coreg. - OK to dc home per cardiology 2. History of coronary artery disease, status post PCI, 3. History of hypertension. Stable to dc Royer Morales Omar Syed MD Aug 21, 2020 12:48
--- NOTE | 2020-08-21 12:55 | NUR ---
NURSE NOTES: Per Dr. Gu, clarify medication with Dr. Coleman, then discharge patient with recommended medication, paged Dr. Coleman, Awaiting for callback.
--- NOTE | 2020-08-21 13:25 | NUR ---
NURSE NOTES: Per Dr. Coleman, Continue Coreg, follow up with cardiology in a week after discharge, will inform patient.
--- NOTE | 2020-08-21 14:30 | NUR ---
NURSE NOTES: Patient discharged to home per Dr. Gu. electric welder returned to educational technician, IV removed and ID band removed and placed in shredder. Patient denies palpitation and pain. Informed and educated regarding medication, uses and side effect. Follow up with cardiology in a week after discharge. Patient taking taxi with taxi voucher. Patient discharged with all belonging in a stable condition.
--- NOTE | 2020-08-21 14:37 | Cardiology Report ---
APPROVED REPORT EXAM: Two-dimensional and M-mode echocardiogram with Doppler and color Doppler. INDICATION SVT M-Mode DIMENSIONS IVSd1.1 (0.7-1.1cm)Left Atrium (MM)3.3 (1.6-4.0cm) LVDd5.2 (3.5-5.6cm)Aortic Root3.3 (2.0-3.7cm) PWd1.6 (0.7-1.1cm)Aortic Cusp Exc.1.9 (1.5-2.0cm) IVSs1.8 cm LVDs3.4 (2.5-4.0cm) PWs2.1 cm <Conclusion> Technically difficult study due to poor acoustical windows. Study quality precludes accurate assessment of regional wall motion. Normal left ventricular chamber size. Left ventricular ejection fraction estimated to be 55%. No evidence of left ventricular hypertrophy. No evidence of pericardial effusion. All other cardiac chamber sizes are within normal limits. Focal aortic valve sclerosis with adequate cusp excursion. Thickened mitral valve leaflets with normal excursion. Mitral annulus and aortic root calcification. Pulmonic valve not well visualized. Normal tricuspid valve structure. IVC measured at size 2.2 cm with physiologic collapse. A color flow and spectral Doppler study was performed and revealed: No aortic regurgitation. Moderate mitral regurgitation. Mitral inflow velocities indicates possible pseudo normalization pattern implying moderately elevated left atrial pressure (Grade II ). Trace tricuspid regurgitation. Tricuspid systolic velocities suggests peak right ventricular systolic pressure of 11 mmHg No pulmonic regurgitation present.
--- NOTE | 2020-08-22 16:13 | Discharge Summary ---
Discharge Summary Discharge Summary _ DATE OF ADMISSION: 08/19/2020 DATE OF DISCHARGE:08/21/2020 DISCHARGED BY: Dr. Gu REASON FOR ADMISSION: 70 years old male past medical history of coronary artery disease , status post [place] with stent placement about 12 years ago, asthma, hypercholesterolemia, presented with palpitations started about 4 hours prior to arrival. Patient received adenosine by paramedics after vagal maneuver failed. Patient also received Cardizem and aspirin by paramedics. Patient denied chest pain. Patient denies any stimulant use. Patient reported alcohol use the day before , but denied shaking . He denied illicit drug use. Upon evaluation laboratory work-up revealed no leukocytosis, stable hemoglobin, hematocrit and platelet count. D-dimer 0.25 Stable electrolytes BUN 22 creatinine 1.2 Glucose 99 Stable LFT Troponin 0.023, EKG revealed no acute ischemic changes . In emergency department patient had multiply episode of recurrent supraventricular tachycardia and received adenosine. Patient also was given magnesium IV due to recent alcohol intake and rhythm disturbance. Patient also received IV Cardizem and subsequently admitted for further management. CONSULTANTS: drop man Dr. Coleman pulmonary Dr. Mckeon [facility]SE: Patient admitted to monitored floor. Windows Consultant followed. First troponin was negative, second troponin was minimally elevated 0.081. EKG revealed no acute ischemic changes Echocardiogram demonstrated normal left ventricular chamber size. Left ventricular ejection fraction estimated to be 55%. No evidence of left ventricular hypertrophy. No evidence of pericardial effusion. Mitral inflow velocity indicated possible pseudonormalization pattern implying moderately elevated left atrial pressure grade 2. Moderate mitral regurgitation. Lipid panel revealed triglycerides 180 ,LDL 105, HDL 67 Per drop man , supraventricular tachycardia was most likely non- atrioventricular sunita reentry tachycardia, that responded to adenosine. Beta-blockade continued. Patient was recommended to have electrophysiology study for ablation of the rhythm. Rhythm stabilized. Pulse oximetry was stable on room air. Patient clinically stabilized and was ready for discharge home. 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 DISCHARGE INSTRUCTIONS: Patient was discharged home. Patient was recommended outpatient EP study. Patient was recommended to limit use of alcohol I have been assigned to dictate discharge summary for this account. I was not involved in the patient's management. Teresa Gordon NP Aug 22, 2020 16:13
== END 2020-08-21 15:25 | disposition home or self-care (01) | DRG 310 ==
LOC: EDBD 17:51 → EMR 18:15 → ICU 18:38 → EDBEDREQSVC 19:22 → EDBEDREQ 19:22 → EDBEDREQSVC 20:22 → EDBEDREQ 21:15 → 2W 08-20 16:18
DX: I47.1 Supraventricular tachycardia (principal); I10 Essential (primary) hypertension; I25.10 Atherosclerotic heart disease of native coronary artery without angina pectoris; Z95.5 Presence of coronary angioplasty implant and graft; Z72.89 Other problems related to lifestyle; E78.5 Hyperlipidemia, unspecified
CPT/HCPCS: 36415; 71045; 80053; 80061; 83036; 84484; 85025; 85379; 85610; 85730; 87081; 93005; 93306; 96365; 96366; 96375; 96376; 99291; J0153; J0282; U0002